=== PATIENT | male | born 1955 | race Caucasian/White ===

== ENCOUNTER 2017-10-29 16:16 | Emergency (ER) | payer SELFPAY ==
[~2017-10-29] VITALS: Ht 182.9 cm; Wt 99.8 kg
[2017-10-29 16:18] VITALS: Ht 182.9 cm; Wt 99.8 kg
[2017-10-29] MEDS ORDERED: METOPROLOL SUCC25 M2 (18:02)
[2017-10-29] MEDS ORDERED: LISINOPRIL2.5 MG (18:02)
[2017-10-29] MEDS ORDERED: KEPPRA500 MG (18:03)
[2017-10-29] MEDS ORDERED: ATORVASTATIN CA40 M1 (18:03)
[2017-10-29] MEDS ORDERED: PLA75 (18:03)
[2017-10-29 18:21] VITALS: BP 121/72
== END 2017-10-29 18:21 | disposition home or self-care (01) ==
LOC: ED 16:16
DX: R56.9 Unspecified convulsions (principal); I10 Essential (primary) hypertension; E78.00 Pure hypercholesterolemia, unspecified; D32.9 Benign neoplasm of meninges, unspecified